=== PATIENT | female | born 1990 | race Caucasian/White ===

== ENCOUNTER → 2025-03-05 09:12 | Outpatient (REF) | payer OTHER, SELFPAY | LOC: PNTC 09:12 | PROVIDERS: ATTENDING PHYSICIAN Obstetrics & Gynecology | DX: Z36.0 Encounter for antenatal screening for chromosomal anomalies (principal); Z36.82 Encounter for antenatal screening for nuchal translucency | CPT/HCPCS: 76801; 76813 ==

== ENCOUNTER → 2025-04-08 07:10 | Outpatient (REF) | payer OTHER, SELFPAY | LOC: PNTC 07:10 | PROVIDERS: ATTENDING PHYSICIAN Student in an Organized Health Care Education/Training Program | DX: O09.522 Supervision of elderly multigravida, second trimester (principal); O99.212 Obesity complicating pregnancy, second trimester; E28.2 Polycystic ovarian syndrome | CPT/HCPCS: 76805 ==